=== PATIENT | female | born 1955 | race Two or more races ===

== ENCOUNTER 2022-04-01 17:10 | Emergency (ER) | payer OTHER, MEDICAID ==
[~2022-04-01] VITALS: Ht 160 cm; Wt 80.7 kg
[2022-04-01] MEDS ORDERED: TETRACAINE HCL 0.5% OPTH(EYE) SOLN 4ML EACHEYE ONE (19:15)
[2022-04-01] MEDS ORDERED: BACITRACIN-POLYMYXIN B OPTH(EYE) OINT 3.5GM LEFTEYE ONE (20:15)
[2022-04-01] MEDS ORDERED: BACIOIN49 LEFTEYE (20:23)
[2022-04-01] MEDS ORDERED: CIPR0.3S67 LEFTEYE (20:23)
[2022-04-01] MEDS ORDERED: ARTISOL13 LEFTEYE (20:23)
[2022-04-01 21:14] VITALS: BP 137/96
== END 2022-04-01 21:14 | disposition home or self-care (01) ==
LOC: ER 17:10
DX: S05.02XA Injury of conjunctiva and corneal abrasion without foreign body, left eye, initial encounter (principal); E11.9 Type 2 diabetes mellitus without complications; E78.5 Hyperlipidemia, unspecified; W50.4XXA Accidental scratch by another person, initial encounter; Y93.89 Activity, other specified; Y92.89 Other specified places as the place of occurrence of the external cause; Y99.8 Other external cause status
CPT/HCPCS: 82962